=== PATIENT | female | born 1970 | race Two or more races ===

== ENCOUNTER → 2016-11-14 | Emergency (ER) | payer SELFPAY ==
[~2016-11-14] VITALS: Ht 175.3 cm; Wt 57.6 kg
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
[2016-11-14 01:49] VITALS: BP_SYST 1; BP_SYST 134; BP_DIAS 1; BP_DIAS 66
== END | disposition home or self-care (01) ==
LOC: EDBD 00:19 → EMR 06:30
DX: S01.01XA Laceration without foreign body of scalp, initial encounter (principal); Y04.2XXA Assault by strike against or bumped into by another person, initial encounter; Y92.89 Other specified places as the place of occurrence of the external cause; F90.9 Attention-deficit hyperactivity disorder, unspecified type
CPT/HCPCS: 99282

== ENCOUNTER 2020-03-05 09:30 | Emergency (ER) | payer OTHER, MEDICAID ==
[~2020-03-05] VITALS: Ht 170.2 cm; Wt 63.5 kg
[2020-03-05 09:36] VITALS: BP 148/80
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
[2020-03-05 09:52] VITALS: BP 148/80
== END 2020-03-05 09:52 ==
LOC: EDUNIT# 09:30 → EDBD 09:30 → EMR 09:51
DX: Z02.89 Encounter for other administrative examinations (principal); Z13.9 Encounter for screening, unspecified; Z88.6 Allergy status to analgesic agent; Z88.5 Allergy status to narcotic agent; Z88.8 Allergy status to other drugs, medicaments and biological substances
CPT/HCPCS: 99281